=== PATIENT | male | born 1980 | race Caucasian/White ===

== ENCOUNTER → 2023-07-13 09:20 | Outpatient (BNVA) | payer MEDICAID, SELFPAY | PROVIDERS: PCP Nurse Practitioner Family; Visit Provider Nurse Practitioner Family | DX: S93.402A Sprain of unspecified ligament of left ankle, initial encounter (principal); X58.XXXA Exposure to other specified factors, initial encounter | CPT/HCPCS: 73610 ==

== ENCOUNTER 2023-07-21 06:00 | Outpatient (RCR) | payer OTHER, SELFPAY | END 2023-08-10 23:59 | disposition home or self-care (01) | LOC: WPT 06:00 | PROVIDERS: Visit Provider Orthopaedic Surgery | DX: S96.912D Strain of unspecified muscle and tendon at ankle and foot level, left foot, subsequent encounter (principal); X58.XXXD Exposure to other specified factors, subsequent encounter | CPT/HCPCS: 97110; 97112; 97140; 97161 ==

== ENCOUNTER → 2023-07-26 13:57 | Outpatient (BNVA) | payer MEDICAID, SELFPAY | PROVIDERS: Visit Provider Podiatrist Foot & Ankle Surgery | DX: S93.402A Sprain of unspecified ligament of left ankle, initial encounter (principal); X58.XXXA Exposure to other specified factors, initial encounter | CPT/HCPCS: 73610 ==

== ENCOUNTER 2023-08-29 16:51 | Outpatient (CLI) | payer MEDICAID, SELFPAY ==
--- NOTE | 2023-08-29 17:00 | USCV_ITS ---
Nitin Burgos Age: 43 Gender: M : 1980 Exam Date: 08/29/2023 16:56 Ordering Phys: Jose Lehman MD (Andy) ([email or web address]) Technologist: CT Exam Location: [facility] [place] Indication: pain rt PROCEDURES: Venous duplex imaging was performed in only the right lower extremity. In addition, the posterior tibial veins were evaluated. On the right side, the common femoral, superficial femoral, profunda femoral, popliteal, posterior tibial, greater saphenous veins and the peroneal trunk were identified and interrogated in the standard fashion. These veins were found to be easily compressible with spontaneous blood flow. No evidence of insufficiency or thrombus noted. FINDINGS: normal us CONCLUSIONS No evidence of right lower extremity DVT. Javier Madrid MD (Electronically Signed) Final Date: 30 August 2023 11:58 S
== END 2023-08-29 16:52 | disposition home or self-care (01) ==
LOC: RAD 16:51
PROVIDERS: Visit Provider Thoracic Surgery (Cardiothoracic Vascular Surgery)
DX: Z86.718 Personal history of other venous thrombosis and embolism (principal); M79.604 Pain in right leg
CPT/HCPCS: 93971

== ENCOUNTER 2023-09-09 06:00 | Outpatient (RCR) | payer MEDICAID, SELFPAY | END 2023-10-09 23:59 | disposition home or self-care (01) | LOC: WPT 06:00 | PROVIDERS: PCP Family Medicine; Visit Provider Orthopaedic Surgery | DX: S96.912D Strain of unspecified muscle and tendon at ankle and foot level, left foot, subsequent encounter (principal); X58.XXXD Exposure to other specified factors, subsequent encounter | CPT/HCPCS: 97110; 97112; 97140; 97530 ==

== ENCOUNTER 2024-02-16 06:00 | Outpatient (RCR) | payer OTHER, SELFPAY | END 2024-03-10 23:59 | disposition home or self-care (01) | LOC: WPT 06:00 | PROVIDERS: Visit Provider Specialist | DX: M25.571 Pain in right ankle and joints of right foot (principal) | CPT/HCPCS: 97110; 97112; 97140; 97161; 97530 ==

== ENCOUNTER 2024-03-11 06:00 | Outpatient (RCR) | payer OTHER, SELFPAY | END 2024-04-09 23:59 | disposition home or self-care (01) | LOC: WPT 06:00 | PROVIDERS: Visit Provider Specialist | DX: M25.571 Pain in right ankle and joints of right foot (principal) | CPT/HCPCS: 97110; 97112; 97140; 97530 ==

== ENCOUNTER 2025-01-16 11:24 | Emergency (ER) | payer SELFPAY ==
--- OUTSIDE RECORDS SUMMARY | 2025-01-16 11:32 | XMS_ITS | Clinical Summary ---
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 No 05/14/2024 Sex and Gender Information Value Date Recorded Sex Assigned at Not on file Legal Sex Male 10:32 PM CDT Gender Identity Not on file Sexual Orientation Not on file Last Filed Vital Signs Vital Sign Reading Time Taken Comments Blood Pressure 144/93 05/14/2024 9:27 PM HUMANE AGENT Pulse - - Temperature 36.2 C (97.1 F) 05/14/2024 9:27 PM HUMANE AGENT Respiratory Rate 18 05/14/2024 9:27 PM HUMANE AGENT Oxygen Saturation 99% 05/14/2024 9:27 PM HUMANE AGENT Inhaled Oxygen Concentration - - Weight 98.9 kg (218 lb) 05/14/2024 9:27 PM HUMANE AGENT Height 185.4 cm (6' 1 ) 05/14/2024 9:27 PM HUMANE AGENT Body Mass Index 28.76 05/14/2024 9:27 PM HUMANE AGENT Plan of Treatment Health Maintenance Due Date Last Done Comments Pre-Diabetes and Diabetes Screening 1980 HEPATITIS B VACCINES (1 of 3 - 19+ 3-dose series) 2000 Preventative Visit-Managed Medicaid 03/01/2019 02/28/2018 INFLUENZA VACCINE (#1) 2025 DTAP/TDAP/TD VACCINES (2 - T d or Tdap) 02/29/2028 02/28/2018 HPV VACCINES Aged Out No longer eligi ble based on patient's age to complete this topic Insurance [facility] PL[facility] [id number]
[2025-01-16 11:42] VITALS: BP 149/97; PULSE 69; TEMP 36.7; O2SAT 98
--- NOTE | 2025-01-16 13:08 | W.ED.WOUNDLC ---
HPI - Wound/Laceration General: Chief Complaint: Wound/Laceration Stated Complaint: rt thumb lac Time Seen by Provider: 01/16/25 11:26 History of Present Illness: 44-year-old male presents to the ED with a laceration to his left thumb that occurred at approximately 09:40 this morning. The patient reports he was preparing food when a kitchen knife slipped, causing the injury. He wrapped the wound immediately after the injury but did not wash it out prior to arrival. The patient denies significant bleeding since the injury occurred. He presents primarily to determine if sutures are necessary for proper wound healing. Related Data Previous Rx's ?Medication ?Instructions ?Recorded apixaban 5 mg tablet (Eliquis) See Rx Instructions .Route 09/14/23 .COMPLEX #60 tabs duloxetine 30 mg capsule,delayed 30 mg PO DAILY 30 days #30 caps 10/31/23 release (Cymbalta) Allergies Allergy/AdvReac Type Severity Reaction Status Date / Time No Known Allergies Allergy Verified 01/16/25 11:46 [facility] PFSH: Medical History (Updated 01/16/25 @ 13:11 by Pa Bill MD) Anxiety and depression Chronic leg pain Dental infection Right leg DVT Sprain of left ankle Surgical History History of arthroplasty of right ankle Social History Smoking and tobacco/nicotine status: current every day tobacco/nicotine user cigarettes Packs smoked per day: 0.5 Years cigarettes smoked: 30 Alcohol intake: current Alcohol intake frequency: 0-2 Drinks per Day Substance/Drug Use: current Substance/Drug use frequency: daily Course Vital Signs: Vital signs: Vital Signs Temperature 98.0 F 01/16/25 11:42 Pulse Rate 69 01/16/25 11:42 Blood Pressure 149/97 01/16/25 11:42 Pulse Oximetry 98 01/16/25 11:42 Oxygen Delivery Me thod Room Air 01/16/25 11:42 MDM - Wound/Laceration Medical Decision Making ROS: Constitutional: Denies lightheadedness or dizziness. Musculoskeletal: No complaints of limited mobility of the affected digit. Skin: Laceration to left thumb, no other skin complaints. All other systems reviewed and negative. MEDICATIONS AND ALLERGIES: - Meds: None reported - Allergies: No known drug allergies PAST HISTORICAL DATA: - PMH: No significant medical problems reported - PSH: None reported - Immunizations: Patient believes tetanus vaccination is up to date PHYSICAL EXAM: General: Alert, non-toxic appearing, in no apparent distress HEENT: Head normocephalic and atraumatic. Mucous membranes moist. Neck: Supple Respiratory: No increased work of breathing, no wheezing Cardiac: Regular rate and rhythm, 2+ pulses in all extremities Abdomen: Soft, non-distended, no rebound or guarding Neuro: Cranial nerves grossly intact, no focal motor or sensory deficits noted Extremities: Left thumb with approximately 2 cm laceration on the ulnar side near the base of the fingernail. The wound extends just barely into the subcutaneous tissue. No active bleeding noted at time of examination. No tendon or neurovascular involvement appreciated. INITIAL IMPRESSION AND PLAN: Given the history and presentation, the primary working diagnosis is a simple laceration to the left thumb. Additional considerations include potential for infection if not properly cleaned and closed. Based on this initial impression, I will perform wound irrigation, local anesthesia, and suture repair of the laceration. The patient has expressed a preference for suturing over alternative closure methods such as tissue adhesive. PROCEDURES: PROCEDURE: Simple laceration repair, left thumb INDICATION: 2 cm laceration to the ulnar side of the left thumb near the base of the fingernail CONSENT: Risks, benefits, and alternatives were discussed with the patient, who verbalized understanding and agreed to proceed with the procedure. PROCEDURE DETAILS: 1. The wound was copiously irrigated with tap water for several minutes. 2. 2 mL of 1% lidocaine without epinephrine was infiltrated around the laceration for local anesthesia. 3. Three simple interrupted sutures with 3-0 Ethilon were used to reapproximate the wound edges. 4. Hemostasis was achieved. 5. The patient tolerated the procedure well with no complications. CONSIDERED BUT NOT PERFORMED: Tissue adhesive (medical glue) CONSIDERED but NOT DONE due to patient preference for suturing and the location of the wound on the thumb, which is a high-movement area where glue may not adhere as effectively. FINAL IMPRESSION: Based on all the above, my clinical impression is most compatible with a simple laceration to the left thumb, approximately 2 cm in length, extending minimally into the subcutaneous tissue. The clinical picture is not currently suggestive of tendon injury, neurovascular compromise, or foreign body retention. Although other conditions were also considered, they were deemed unlikely based on the clinical information available. CLINICAL DISPOSITION: The patient's current condition is stable in my estimation and the most appropriate and indicated disposition at this time is discharge home with wound care instructions and suture removal in 12-14 days. CASE SUMMARY: 44-year-old male with no significant past medical history presented with a 1 cm laceration to the ulnar aspect of his left thumb near the nail bed after a kitchen knife accident earlier today. The wound was superficial, extending minimally into the subcutaneous tissue without evidence of tendon involvement or neurovascular compromise. After thorough irrigation, the laceration was closed with three simple interrupted 3-0 Ethilon sutures under local anesthesia. The patient tolerated the procedure well and was discharged home in stable condition with wound care instructions and advised to return for suture removal in 12-14 days. No radiology studies performed this visit Discharge Plan Discharge Patient Disposition: Home Clinical Impression: Laceration Condition: Stable Prescriptions: No Action duloxetine [Cymbalta] 30 mg capsule,delayed release(DR/EC) 30 mg PO DAILY 30 Days Qty: 30 1RF Eliquis 5 mg tablet See Rx Instructions .ROUTE .COMPLEX Qty: 60 0RF Dose Instruction: TAKE 1 TABLET BY MOUTH TWICE DAILY Rx Instructions: TAKE 1 TABLET BY MOUTH TWICE DAILY Discharge Orders: Discharge ED (Routine); Ordered 01/16/25 Ordered By: Pa Bill Patient Instructions: Care For Your Stitches (ED), Opioid Safety, Pain Management, Patient Portal & [facility]vin Instructions Activity Restrictions/Additional Instructions: DISCHARGE INSTRUCTIONS: DIAGNOSIS: Laceration of left thumb WOUND CARE: 1. Keep the wound clean and dry for the next 24-48 hours. 2. After 48 hours, you may shower normally, but avoid soaking the wound in water (no swimming, baths, or dishwashing). 3. Gently pat the area dry after showering. 4. Apply a thin layer of antibiotic ointment and cover with a clean, dry bandage daily. MEDICATIONS: 1. Take [id number] pain relievers such as acetaminophen (Tylenol) or ibuprofen (Advil, Motrin) as needed for pain according to package directions. FOLLOW-UP: 1. Return to the Emergency Department or your primary care provider in 12-14 days for suture removal. 2. Schedule an appointment with your primary care provider if you have any concerns before then. RETURN TO THE EMERGENCY DEPARTMENT IMMEDIATELY IF: 1. You develop increasing redness, warmth, swelling, or pus around the wound 2. You develop red streaks extending from the wound 3. You develop a fever greater than 100.4?F (38?C) 4. You experience increasing pain not relieved by [id number] pain medication 5. You notice numbness, tingling, or decreased movement in the affected finger 6. The wound reopens or the sutures come out before your follow-up appointment Print Language: Ugandan Coding Level of Care Code ED Agriculture Laboratory Technician for Esther Perdomo
== END 2025-01-16 13:26 | disposition home or self-care (01) ==
PROVIDERS: Emergency Provider Student in an Organized Health Care Education/Training Program
DX: S61.012A Laceration without foreign body of left thumb without damage to nail, initial encounter (principal); Z79.01 Long term (current) use of anticoagulants; F17.210 Nicotine dependence, cigarettes, uncomplicated; W26.0XXA Contact with knife, initial encounter
CPT/HCPCS: 12001; 99283; J9999